=== PATIENT | female | born 1985 | race American Indian/Alaskan Native ===

== ENCOUNTER 2019-11-11 10:52 | Emergency (ER) | payer SELFPAY ==
[2019-11-11 11:00] VITALS: BP 118/66
--- NOTE | 2019-11-11 11:55 | Emergency Department Report ---
ED ENT HPI - General Chief complaint: Dental/Oral Stated complaint: MOUTH AND FACE SWOLLEN Time Seen by Provider: 11/11/19 11:50 Source: patient Mode of arrival: Ambulatory Limitations: No Limitations - History of Present Illness Initial comments: pt is a 33 yo female who presents with left upper dental pain that began last night. she states this morning when she woke up she had swelling present to the left face. she denies any fever, n/v/d, no difficulty swallowing. states she has not seen a dentist in over a year. PMHx none. no allergies to meds. LNMP: November 04, 2019 - Related Data Previous Rx's Medication Instructions Recorded Last Taken Type Clindamycin [Clindamycin CAP] 450 mg PO TID 7 Days #63 capsule 11/11/19 Unknown Rx Ibuprofen [Motrin 600 MG tab] 600 mg PO Q8H PRN #20 tablet 11/11/19 Unknown Rx Penicillin Vk [Veetids TAB] 500 mg PO QID 7 Days #56 tablet 11/11/19 Unknown Rx Allergies Allergy/AdvReac Type Severity Reaction Status Date / Time No Known Allergies Allergy Unverified 11/11/19 10:58 ED Dental HPI - General Chief complaint: Dental/Oral Stated complaint: MOUTH AND FACE SWOLLEN Time Seen by Provider: 11/11/19 11:50 Source: patient Mode of arrival: Ambulatory Limitations: No Limitations - Related Data Previous Rx's Medication Instructions Recorded Last Taken Type Clindamycin [Clindamycin CAP] 450 mg PO TID 7 Days #63 capsule 11/11/19 Unknown Rx Ibuprofen [Motrin 600 MG tab] 600 mg PO Q8H PRN #20 tablet 11/11/19 Unknown Rx Penicillin Vk [Veetids TAB] 500 mg PO QID 7 Days #56 tablet 11/11/19 Unknown Rx Allergies Allergy/AdvReac Type Severity Reaction Status Date / Time No Known Allergies Allergy Unverified 11/11/19 10:58 ED Review of Systems ROS: Stated complaint: MOUTH AND FACE SWOLLEN Other details as noted in HPI Comment: All other systems reviewed and negative ED Past Medical Hx - Past Medical History Previous Medical History?: No - Surgical History Past Surgical History?: Yes Additional Surgical History: x 1 - Social History Smoking Status: Never Smoker Substance Use Type: None - Medications Home Medications: Home Medications Medication Instructions Recorded Confirmed Last Taken Type Clindamycin [Clindamycin CAP] 450 mg PO TID 7 Days #63 capsule 11/11/19 Unknown Rx Ibuprofen [Motrin 600 MG tab] 600 mg PO Q8H PRN #20 tablet 11/11/19 Unknown Rx Penicillin Vk [Veetids TAB] 500 mg PO QID 7 Days #56 tablet 11/11/19 Unknown Rx ED Physical Exam - General Limitations: No Limitations General appearance: alert, in no apparent distress - Head Head exam: Present: atraumatic, normocephalic - Eye Eye exam: Present: normal appearance - ENT ENT exam: Present: normal orophraynx, mucous membranes moist, other (there are several missing/cracked teeth with multiple fillings present, there is a cracked tooth present to the left upper molar, there is induration and pain adjacent to this tooth in the left upper gumline, there is edema present in the left maxillary region, no subcutaneous emphysema, no fluctuance in the maxillary region, no tongue elevation, no muffled voice, uvula is midline, no uvular edema, no uvular deviation, no submandibular swelling) - Respiratory Respiratory exam: Present: normal lung sounds bilaterally. Absent: respiratory distress, wheezes, rales, rhonchi, stridor, chest wall tenderness, accessory muscle use, decreased breath sounds, prolonged expiratory - Cardiovascular Cardiovascular Exam: Present: regular rate, normal rhythm, normal heart sounds. Absent: systolic murmur, diastolic murmur, rubs, gallop - Neurological Exam Neurological exam: Present: alert, oriented X3 - Psychiatric Psychiatric exam: Present: normal affect, normal mood - Skin Skin exam: Present: warm, dry ED Course Vital Signs 11/11/19 10:58 Temperature 98.7 F Pulse Rate 71 Respiratory 18 Rate Blood Pressure 118/66 O2 Sat by Pulse 100 Oximetry ED Medical Decision Making - Medical Decision Making pt is a 33 yo female who presents with left upper dental pain that began last night. she states this morning when she woke up she had swelling present to the left face. she denies any fever, n/v/d, no difficulty swallowing. states she has not seen a dentist in over a year. PMHx none. no allergies to meds. LNMP: November 04, 2019. Vitals are normal. On exam: there are several missing/cracked teeth with multiple fillings present, there is a cracked tooth present to the left upper molar, there is induration and pain adjacent to this tooth in the left upper gumline, there is edema present in the left maxillary region, no subcutaneous emphysema, no fluctuance in the maxillary region, no tongue elevation, no muffled voice, uvula is midline, no uvular edema, no uvular deviation, no submandibular swelling. Examination consistent with dental abscess and facial cellulitis. Patient given prescription for clindamycin, penicillin VK, ibuprofen. Advised patient please take medication as prescribed. please follow up with a dentist. it is very important you follow up with a dentist. return to the emergency room immediately for any new or worsening symptoms including but not limited to worsening swelling, fever, difficulty swallowing, difficulty breathing, etc. Critical care attestation.: If time is entered above; I have spent that time in minutes in the direct care of this critically ill patient, excluding procedure time. ED Disposition Clinical Impression: Dental abscess, Dental caries, Facial cellulitis Disposition: TO HOME OR SELFCARE Is pt being admited?: No Does the pt Need Aspirin: No Condition: Stable Instructions: Dental Abscess (ED), Dental Caries (ED) Additional Instructions: please take medication as prescribed. please follow up with a dentist. it is very important you follow up with a dentist. return to the emergency room immediately for any new or worsening symptoms including but not limited to worsening swelling, fever, difficulty swallowing, difficulty breathing, etc. Prescriptions: Clindamycin [Clindamycin CAP] 450 mg PO TID 7 Days #63 capsule Ibuprofen [Motrin 600 MG tab] 600 mg PO Q8H PRN #20 tablet PRN Reason: Pain Penicillin Vk [Veetids TAB] 500 mg PO QID 7 Days #56 tablet Referrals: [facility] [Outside] - 3-5 Days [facility] [Outside] - 3-5 Days Time of Disposition: 11:59 Print Language: ALBAN[place]
== END 2019-11-11 12:48 | disposition home or self-care (01) ==
LOC: ED 10:52
DX: K04.7 Periapical abscess without sinus (principal); K02.9 Dental caries, unspecified; L03.211 Cellulitis of face; Z79.1 Long term (current) use of non-steroidal anti-inflammatories (NSAID); Z79.2 Long term (current) use of antibiotics; Z98.890 Other specified postprocedural states
CPT/HCPCS: 99282